=== PATIENT | female | born 1950 | race African-American/Black ===

== ENCOUNTER 2021-04-07 07:40 | Emergency (ER) | payer OTHER ==
[~2021-04-07] VITALS: Ht 162.6 cm; Wt 79.4 kg
[2021-04-07] MEDS ORDERED: FLUTICASONE PRO16 GM NASAL (07:59)
[2021-04-07] MEDS ORDERED: ATENOLOL 50MG T50 M1 PO (07:59)
[2021-04-07] MEDS ORDERED: VITAMIN D3125 MC1 PO (07:59)
[2021-04-07] MEDS ORDERED: IBUPROFEN 800800 MG PO (08:57)
[2021-04-07] MEDS ORDERED: TYLENOL325 M1 PO (08:57)
[2021-04-07 09:18] VITALS: BP 130/64
== END 2021-04-07 09:18 | disposition home or self-care (01) ==
LOC: ER 07:40
DX: S70.01XA Contusion of right hip, initial encounter (principal); S60.221A Contusion of right hand, initial encounter; I10 Essential (primary) hypertension; W01.0XXA Fall on same level from slipping, tripping and stumbling without subsequent striking against object, initial encounter; Y93.89 Activity, other specified; Y92.830 Public park as the place of occurrence of the external cause; Y99.8 Other external cause status

== ENCOUNTER → 2021-08-17 | Outpatient (CLI) | payer OTHER ==
[~2021-08-17] MED LIST: ATENOLOL 50MG T50 M1 PO; FLUTICASONE PRO16 GM NASAL; IBUPROFEN 800800 MG PO; TYLENOL325 M1 PO; VITAMIN D3125 MC1 PO
== END ==
LOC: CAT 13:39
PROVIDERS: ATTEND Internal Medicine
DX: Z13.6 Encounter for screening for cardiovascular disorders (principal); I25.10 Atherosclerotic heart disease of native coronary artery without angina pectoris; E78.00 Pure hypercholesterolemia, unspecified